=== PATIENT | male | born 1975 | race Asian ===

== ENCOUNTER 2016-07-11 18:09 | Emergency (ER) | payer OTHER ==
[2016-07-11 18:24] VITALS: BP 141/101; PULSE 112; RESP 14; TEMP 100; O2SAT 94
[2016-07-11 19:21] LABS: COLOR YELLOW; LEUKOCYTE ESTERASE,URINE NEGATIVE (NEGATIVE); NITRITE,URINE NEGATIVE (NEGATIVE)
[2016-07-11] MEDS ORDERED: AZITHROMYCIN 250 MG TAB PO ONE (19:47)
[2016-07-11] MEDS ORDERED: ALBUTEROL INH PREPACK MDI TAKEHOME ONE (19:48)
--- NOTE | 2016-07-11 19:49 | UCPHY ---
H & P Time Seen by Provider: 07/11/16 19:06 Patient Type: New HPI/ROS: This patient has fever associated with mild scratchy throat and cough that started today. He reports no other associated symptoms. He is concerned about his symptoms due to his immunosuppression being on Humira for rheumatoid arthritis and psoriasis. He reports that his symptoms started yesterday and feel like they were progressing and worsening. He is exposed to a coworkers had some respiratory illness that took his co-worker out of work for a week.. Patient does know any other details about his diagnosis. ROS: No high fevers or chills. No significant fatigue. HEENT: No significant nasal congestion. Minimal sore throat. No ear pain. No dysphonia. Pulmonary: No pleuritic pain. No hemoptysis. Cardiovascular: No lightheadedness. GI: No vomiting. He does have loose stools over the past 2 days. Integumentary: No skin rash. 7 point ROS is otherwise negative. Smoking Status: Never smoked Physical Exam: Physical Exam Vital signs are normal. General: No acute distress HEENT: Nose: Clear bilaterally. No sinus tenderness to percussion. Ears: External canals and tympanic membranes are clear with no erythema or abnormal findings bilaterally. Oropharynx: No erythema or exudates. No dysphonia. No drooling or stridor. Neck: Supple Eyes: Pupils equal and react to light. Extraocular motions are intact. Lungs: Rare cough with faint expiratory wheeze. No rales or rhonchi. Cardiac: Regular rate and rhythm with no murmur gallop or rub Abdomen: Soft, no suprapubic tenderness. : No testicular tenderness. No CVA tenderness Skin: No rash or pallor. Neuro: Alert with no focal deficits noted. Initial differential diagnosis: Strep pharyngitis, viral pharyngitis, acute bronchitis, doubt pneumonia, rule out UTI Constitutional: Initial Vital Signs Temperature (C) 37.8 C 07/11/16 18:18 Heart Rate 112 H 07/11/16 18:18 Respiratory Rate 14 07/11/16 18:18 Blood Pressure 141/101 H 07/11/16 18:18 O2 Sat (%) 94 07/11/16 18:18 O2 Delivery Mode Room Air Allergies/Adverse Reactions: No Known Allergies Allergy (Verified 07/11/16 18:17) Home Medications: Medication Instructions Recorded Humira 07/07/11 Azithromycin [Zithromax] 250 mg PO DAILY #4 tab 07/11/16 MDM/Departure - MDM Diagnostics: Rapid strep is negative Urinalysis is normal except for ketones. Medications Given: Discontinued Medications Albuterol Sulfate (Proventil Inh Prepack) 1 mdi TAKEHOME EDNOW ONE Stop: 07/11/16 19:49 Last Admin: 07/11/16 20:00 Dose: 1 mdi Azithromycin (Zithromax) 500 mg PO EDNOW ONE PRN Reason: Protocol Stop: 07/11/16 19:48 Last Admin: 07/11/16 20:00 Dose: 500 mg ED Course/Re-evaluation: Given the patient's mild immunocompromised on Humira I offered to pursue further workup with IV and lab work with the patient declines at this time. His findings are most consistent with a mild bronchitis. I counseled regarding this given his fever and presence of hematuria will cover him with macrolide antibiotic. 1st dose of Zithromax is given here. - Depart Disposition: Home, Routine, Self-Care Clinical Impression: Acute bronchitis Qualifiers: Bronchitis organism: unspecified organism Qualified Code(s): J20.9 - Acute bronchitis, unspecified Condition: Good Instructions: Acute Bronchitis (ED) Additional Instructions: Diagnosis: Acute bronchitis Plan: Humidifier Albuterol inhaler for cough, wheeze or shortness of breath Zithromax antibiotic Ibuprofen Tylenol if needed for fevers. Return for any significant worsening despite treatment plan Prescriptions: Azithromycin [Zithromax] 250 mg PO DAILY #4 tab Referrals: Lacey Esparza MD [Primary Care Provider] - As per Instructions - PQRS PQRS Measurement: NA
== END 2016-07-11 20:03 | disposition home or self-care (01) ==
LOC: CED 18:09
DX: J20.9 Acute bronchitis, unspecified (principal)
CPT/HCPCS: 81003-PO; 87880-PO; G0463-PO